=== PATIENT | female | born 1965 | race Caucasian/White ===

== ENCOUNTER 2019-03-20 13:25 | Observation (INO) ==
[2019-03-20 13:44] VITALS: BMI 25.6
--- NOTE | 2019-03-20 14:25 | DR.FBACK ---
HPI Time Seen Time Seen by Provider: 03/20/19 14:24 PCP Primary Care Physician: PINEDA DODD HPI Comment HPI Comment: PATIENT IS 53YR OLD FEMALE IN THE EMERGENCY ROOM WITH LOW BACK PAIN TIMES 3 WEEKS. PATIENT HAD LOWER BACK SURGERY ON 02/26/2019. WAS IMPROVING. PAIN STARTED AGAIN AND SAY HER DOCKTOR. STRIOD GIVEN BUT PATIENT STILL WORSE. NO TRAUMA. NO FEVER OR DYSURIA. TOOK PERCOCET AND STILL HAVE 10/10 PAIN. PAIN RADIATES DOWN LLE. Complaint Chief Complaint Doctor Comments: LOWER BACK PAIN Chief Complaint:: PT C/O BACK PAIN , PT HAD SURGERY IN [place] ON 02/26/19 AND PT WENT BACK ON 03/15/19 - PT WENT FOR FLU AND PLACED ON STEROIDS, AND TOLD SHE MAY HAVE A PULLED MUSCLE ,PT C/O > BACK PAIN THAT STARTED A WHILE AGO ( BACK PAIN THAT RADIATES TO HER LEFT SIDE ) Self Treatment fo Chief Complaint: OXYCODONE, NEURONTIN, MUSCLE RELAXER, TYLENOL #3 AND SHE STATES IT IS NOT HELPING HER PAIN ,BR Reviewed Nurses Notes Review: Yes Source History Provided: Patient Mode of Arrival Mode of Arrival: Ambulatory Timing Onset of Chief Complaint: 03/19/19 Duration Duration: Constant Duration: Days Location Back Pain Location: BACK Severity Severity: Severe Quality Quality: Aching and Sharp Context History of: Chronic Back Pain Modifying Factors Worsened By: Movement Associated Signs and Symptoms Back Pain Symptoms: None Numbness: Left and Foot Weakness: None Other History Other History: SURGERY LOWER BACK 02/26/2019. PMH PMH Past Medical History: Yes Past Medical History: Asthma and GERD Past Medical History Comment: BACK, LEAKY VALVE, IBS , DIVERTICULITIS Past Surgical History: Yes Surgical History: , Cholecystectomy and Hysterectomy Past Surgical History Comment: RIGHT KNEE, BACK Family History History of Family Medical Conditions: Yes Family Medical History: Cancer Social History Does patient currently use any type of tobacco product: No Have you used tobacco products in the last 12 months: No Type of Tobacco Use: None Does any household member use tobacco: No Alcohol Use: None Do you use any recreational Drugs:: No Lives With: Family Lives Where: Home infectious screening In the last 2 months have you had wt loss of >10#?: NO Have you had fever, night sweats or hemotysis?: No Have you traveled outside the country in the last 6 months?: No Isolation: Standard ROS Review of Systems Constitutional: No Symptoms Reported and See HPI; negative Fever, Weakness and Fatigue Eyes: No Symptoms Reported and See HPI ENTM: No Symptoms Reported and See HPI Respiratoy: No Symptoms Reported and See HPI; negative Short of Breath and Wheezing Cardiovascular: No Symptoms Reported and See HPI; negative Chest Pain and Palpitations Gastrointestinal/Abdominal: No Symptoms Reported and See HPI; negative Abdominal Pain, Constipation, Diarrhea, Nausea and Vomiting Genitourinary: No Symptoms Reported and See HPI; negative Dysuria, Frequency and Hematuria Neurological: No Symptoms Reported and See HPI; negative Headache, Weakness and Dizziness Musculoskeletal: See HPI, Back Pain, Muscle Pain and Back Integumentary: No Symptoms Reported and See HPI; negative Change in Color, Rash and Juandice Hematologic/Lymphatic: No Symptoms Reported and See HPI; negative Swollen Glands and Lymphadenopathy Endocrine: No Symptoms Reported, See HPI, Increased Thirst and Increased Urine Psychiatric: No Symptoms Reported and See HPI All Other Systems: Reviewed and Negative PE Vitals Vital Signs: Temp Pulse Resp BP Pulse Ox 03/20/19 16:08 17 03/20/19 15:09 17 03/20/19 15:08 17 03/20/19 13:38 97.5 F L 82 18 125/79 97 09/25/15 11:42 114/72 General Limitations: No Limitations General Appearance: Alert and In No Apparent Distress Head Head Exam: Normal Inspection, Atraumatic and Normocephalic Eyes Eye exam: Normal Appearance and PERRL; negative Scleral Icterus and Conjunctival Injection ENT ENT Exam: Normal Exam, Normal Oropharynx, Normal External Ear Exam and TM's Normal Bilaterally Chest Chest Inspection: Normal Inspection and Symmetric Chest Wall Rise; negative Tenderness Respiratory Respiratory Exam: Normal Lung Sounds Bilat; negative Accessory Muscle Use, Chest Wall Tenderness and Respiratory Distress Respiratory Exam: Bilateral: Clear to Auscultation Cardiovascular Cardiovascular Exam: Regular Rate, Normal Rhythm and Normal Heart Sounds; negative Systolic Murmur and Diastolic Murmur Abdominal Exam Abdominal Exam: Normal Inspection, Normal Bowel Sounds and Soft; negative Tenderness Genitourinary External Exam: Female: Deferred : Speculum Exam (Female): Deferred : Bimanual Exam (female): Deferred Extremities Extremities Exam: Normal Inspection and Normal Capillary Refill; negative Tenderness, Edema and Calf Tenderness Back Back Exam: Normal Inspection, Tenderness, Paraspinal Tenderness and Vertebral Tenderness Neurological Neurological Exam: Alert, Oriented X3 and CN II-XII Intact; negative Motor Sensory Deficit Psychiatric Psychiatric Exam: Normal Affect and Normal Mood Skin Skin Exam: Warm, Dry, Intact and Normal Color MDM Differential Diagnosis Differential Diagnosis: DJD, Fracture, Musculoskeletal Pain, Pyelonephritis, Strain and Urolithiasis COURSE Treatment Treatment: SEE ORDERS. Education/Counseling Education/Counseling: Patient and Family Educated On: Diagnosis and Needs for Follow Up ROR Labs Reviewed Laboratory Results Reviewed?: Yes Result Diagrams: 03/21/19 04:12 03/21/19 04:12 Laboratory: Specimen Type Clean catch urine 03/20/19 14:51 Urine Color Yellow (YELLOW) 03/20/19 14:51 Urine Appearance Clear (CLEAR) 03/20/19 14:51 Urine pH 6.0 (5.0 - 8.0) 03/20/19 14:51 Ur Specific [place] 1.025 (1.000-1.030) 03/20/19 14:51 Urine Protein 2+ (NEGATIVE) 03/20/19 14:51 Urine Glucose (UA) Negative (NEGATIVE) 03/20/19 14:51 Urine Ketones Negative (NEGATIVE) 03/20/19 14:51 Urine Occult Blood Negative (NEGATIVE) 03/20/19 14:51 Urine Nitrite Negative (NEGATIVE) 03/20/19 14:51 Urine Bilirubin Negative (NEGATIVE) 03/20/19 14:51 Urine Urobilinogen Normal (NORMAL) 03/20/19 14:51 Ur Leukocyte Esterase 1+ (NEGATIVE) 03/20/19 14:51 Urine RBC 0-2 /HPF (0-3) 03/20/19 14:51 Urine WBC 3-5 /HPF (0-5) 03/20/19 14:51 Ur Squamous Epith Cells Few /HPF (NEGATIVE) 03/20/19 14:51 Urine Bacteria Trace /HPF (NEGATIVE) 03/20/19 14:51 Urine Mucus Few /HPF (NEGATIVE) 03/20/19 14:51 Ur Culture Indicated? No/not indicated 03/20/19 14:51 XRAY XRAY Interpreted by: Radiologist XRAY Findings: REPORT NOTED AND DISCUSSED WITH PATIENT. Opioid Opioid Risk Tool Age (Ty box if 16-45): No History of Preadolescent Sexual Abuse: No Total: 0 Total Score Risk Category: Low Risk Copyright: Eldridge LR predicting aberrant behaviors Diagnosis Discharge Problem: Low back pain radiating down leg Sciatica Qualifiers: Laterality: bilateral Qualified Code(s): M54.31 - Sciatica, right side Instructions Instructions: Back Pain, Adult Sciatica, [id number] Forms: Excuse From Work Patient Portal
[2019-03-20] MEDS ORDERED: TORADOL 60 MG VIAL IM ONE (14:47)
[2019-03-20] MEDS ORDERED: NORFLEX INJ IM ONE (14:47)
[2019-03-20] MEDS ORDERED: DECADRON INJ IM ONE (14:47)
[2019-03-20] MEDS ORDERED: TORADOL 60 MG VIAL ONE (14:49)
[2019-03-20] MEDS ORDERED: NORFLEX INJ ONE (14:49)
[2019-03-20] MEDS ORDERED: DECADRON INJ ONE (14:49)
[2019-03-20 15:11] LABS: BILIRUBIN,URINE NEGATIVE (NEGATIVE); BLOOD/HEMOGLOBIN,URINE NEGATIVE (NEGATIVE); GLUCOSE, URINE NEGATIVE (NEGATIVE); KETONES,URINE NEGATIVE (NEGATIVE); LEUKOCYTE ESTERASE ,URINE 1+ (NEGATIVE); NITRITES,URINE NEGATIVE (NEGATIVE); PROTEIN,URINE 2+ (NEGATIVE); UROBILINOGEN,URINE NORMAL (NORMAL)
[2019-03-20 15:20] LABS: APPEARANCE,URINE CLEAR (CLEAR); BACTERIA,URINE TRACE /HPF (NEGATIVE); COLOR,URINE YELLOW (YELLOW); MUCUS,URINE FEW /HPF (NEGATIVE); RBC,URINE 0-2 /HPF (0-3); SQUAMOUS EPITHELIAL CELL,UR FEW /HPF (NEGATIVE)
--- NOTE | 2019-03-20 15:26 | CT ---
CT lumbar spine without contrast Indication: Back pain with previous laminectomy Comparison: None available Technique: Multiple axial images of the lumbar spine were obtained from the upper abdomen to the pelvis without administration of IV contrast. Sagittal and coronal reformats were performed and reviewed. Dose reduction techniques including automated exposure control (AEC) and adjustment of mA and kV were utilized. Findings: There is no fracture or spondylolisthesis of the lumbar spine. There is mild multilevel discogenic degenerative change and facet arthropathy within the lumbar spine. Previous partial laminectomy noted on the right at L3. Given limitations of a CT examination no definite moderate or high-grade spinal canal or neural foraminal stenosis identified. Degenerative change are noted within bilateral SI joints. Scattered distal colonic diverticulosis is noted. Prior cholecystectomy. IMPRESSION: 1. Mild discogenic degenerative change and facet arthropathy throughout the lumbar spine acute fracture, spondylolisthesis or evidence of moderate or high-grade spinal canal or neural foraminal stenosis. Based on clinical symptoms correlation with lumbar spine MRI can be performed as clinically warranted. 2. Previous right-sided partial laminectomy at L3. Reported By:
[2019-03-20] MEDS ORDERED: ZOFRAN INJ 4 MG VIAL ONE (16:40)
[2019-03-20] MEDS ORDERED: MORPHINE SULFATE INJ 4 MG ONE (16:43)
[2019-03-20] MEDS ORDERED: MORPHINE SULFATE INJ 4 MG IVP ONE (16:49)
[2019-03-20] MEDS ORDERED: ZOFRAN INJ 4 MG VIAL IVP ONE (16:49)
[2019-03-20] MEDS ORDERED: ZOFRAN INJ 4 MG VIAL IVP PRN (17:17)
[2019-03-20] MEDS: NS 1000 ML 1,000 ML IV SCH (18:12)
[2019-03-20] MEDS: MORPHINE SULFATE INJ 4 MG IVP PRN (19:21)
[2019-03-20] MEDS ORDERED: NEURONTIN CAP 300 MG PO SCH (21:00)
[2019-03-20] MEDS: ZANAFLEX PO SCH (21:12)
[2019-03-20] MEDS: ZANTAC PO SCH (21:12)
[2019-03-20] MEDS: TORADOL 30 MG VIAL IVP PRN (22:42)
[2019-03-21] MEDS: MORPHINE SULFATE INJ 4 MG IVP PRN (02:45)
[2019-03-21 04:39] LABS: BASOPHILS # (AUTO) 0.1 X10^3/uL (0.0-0.1); BASOPHILS % (AUTO) 0.7 % (0.2-1.0); HEMATOCRIT 40.5 % (36.0-47.0); HEMOGLOBIN 13.5 g/dL (12.0-16.0); LYMPHOCYTES # (AUTO) 1.9 X10^3/uL (1.3-2.9); LYMPHOCYTES % (AUTO) 21.6 % (21.0-51.0); MEAN CORPUSCULAR HEMOGLOBIN 29.2 pg (27.0-34.0); MEAN CORPUSCULAR HGB CONC 33.4 g/dL (33.0-35.0); MEAN CORPUSCULAR VOLUME 87.4 fL (80.0-100.0); MEAN PLATELET VOLUME 8.8 fL (7.4-11.0); MONOCYTES # (AUTO) 0.5 x10^3/uL (0.3-0.8); MONOCYTES % (AUTO) 5.7 % (0.0-13.0); NEUTROPHILS # (AUTO) 6.3 x10^3/uL (2.2-4.8); PLATELET COUNT 320 X10^3/uL (150.0-450.0); RED BLOOD COUNT 4.63 X10^6/uL (3.5-5.4); RED CELL DISTRIBUTION WIDTH 13.5 % (11.6-16.5); WHITE BLOOD COUNT 8.7 X10^3/uL (3.6-10.0)
[2019-03-21 04:57] LABS: ALANINE AMINOTRANSFERASE 44 Units/L (12-78); ALBUMIN 3.3 g/dL (3.4-5.0); ALKALINE PHOSPHATASE 144 Units/L (46-116); ASPARTATE AMINO TRANSFERASE 32 Units/L (15-37); BLOOD UREA NITROGEN 20 mg/dL (7-18); CARBON DIOXIDE 26.2 mmol/L (21-32); CHLORIDE 103 mmol/L (98-107); COR CA(FOR HYPOALB) 9.6 mg/dL (8.5-10.1); SODIUM 137 mmol/L (136-145); TOTAL PROTEIN 7.2 g/dL (6.4-8.2); eGFR NON BLACK RACES > 60 (>60)
[2019-03-21] MEDS: NS 1000 ML 1,000 ML IV SCH ×2 (05:41→20:18)
[2019-03-21] MEDS: TORADOL 30 MG VIAL IVP PRN (07:24)
[2019-03-21] MEDS: LINZESS PO SCH (08:45)
[2019-03-21] MEDS: CELEXA PO SCH (08:45)
[2019-03-21] MEDS: PREVACID PO SCH (08:45)
--- NOTE | 2019-03-21 10:28 | DR.H&P ---
H&P - History & Physical for Day of: H&P Date: 03/20/19 - Chief Complaint Chief Complaint: SEVERE LOWER BACK PAIN - History of Present Illness History of Present Illness: IS A 53 YEAR OLD PATIENT OF DR.LINA GUILLEN. SHE PRESENTED TO THE ER WITH COMPLAINTS OF SEVERE LOWER BACK PAIN. SHE REPORTS A LAMINECTOMY ON 02/26/19. SHE HAD A FOLLOW UP ON 03/15/19. SHE WAS PLACED ON STEROIDS AT THAT TIME DUE TO PERSISTENT BACK PAIN AND WAS TOLD THAT SHE MAY HAVE A PULLED MUSCLE. SHE REPORTS THAT PAIN RADIATES TO THE LEFT FLANK AREA AND DOWN HER LEFT LEG. SHE TAKES HYDROCODONE, NEURONTIN, ZANAFLEX, AND TYLENOL #3, BUT DENIES IMPROVEMENT IN SYMPTOMS DESPITE COMPLIANCE WITH MEDS. ON ARRIVAL, VITALS WERE 97.5-82-18-97%-125/79. LABS WERE OBTAINED. A LUMBAR SPINE CT WAS OBTAINED AND REVEALED: Mild discogenic degenerative change and facet arthropathy throughout the lumbar spine acute fracture, spondylolisthesis or evidence of moderate or high-grade spinal canal or neural foraminal stenosis. Based on clinical symptoms correlation with lumbar spine MRI can be performed as clinically warranted. Previous right-sided partial laminectomy at L3. SHE WAS GIVEN MORPHINE 4MG IV X 1, TORADOL 60MG IM X 1, DECADRON 4MG IM X 1, AND NORFLEX 60MG IM X 1 IN THE ER. SHE DENIED SIGNIFICANT IMPROVEMENT IN PAIN. SHE WAS ADMITTED FOR FURTHER EVALUATION AND TREATMENT OF INTRACTABLE LOWER BACK PAIN. WE WILL START MORPHINE 4MG IV Q6H PRN, TORADOL 30MG IV Q6H PRN, AND NEURONTIN 300MG PO HS. WE PLAN TO OBTAIN A LUMBAR SPINE MRI IN THE MORNING. OTHERWISE, WE WILL FOLLOW UP WITH AM LABS AND CONTINUE TO MONITOR. - Past Medical History Past Medical History: Asthma, GERD - Past Surgical History Surgical History: , Cholecystectomy, Ortho Surgery, Other - Family History Family Medical History: Cancer, Hypertension - Social History Does patient currently use any type of tobacco product: No Have you used tobacco products in the last 12 months: No Type of Tobacco Use: None Does any household member use tobacco: No Alcohol Use: None Drug Use: None - Medications Home Medications: No Known Drug Allergies Allergy (Verified 03/20/19 13:45) CONTINUE taking the following medications acetaminophen-codeine [Tylenol-Codeine #3] 1 tab PO BID PRN 03/20/19 [History] citalopram 20 mg PO DAILY 03/20/19 [History] dexlansoprazole [Dexilant] 60 mg PO DAILY 03/20/19 [History] gabapentin 200 mg PO BID 03/20/19 [History] gabapentin 300 mg PO HS 03/20/19 [History] hydrocodone-acetaminophen 1 tab PO Q4H PRN 03/20/19 [History] linaclotide [Linzess] 290 mcg PO DAILY 03/20/19 [History] ranitidine HCl [Zantac 75] 300 mg PO HS 03/20/19 [History] tizanidine 4 mg PO HS 03/20/19 [History] - Review of Systems Constitutional: No Symptoms Reported Eyes: No Symptoms Reported ENT: No Symptoms Reported Respiratory: No Symptoms Reported Cardiovascular: No Symptoms Reported Gastrointestinal: No Symptoms Reported Genitourinary: No Symptoms Reported Musculoskeletal: Back Pain (LOWER BACK PAIN WITH RADIATION TO THE LEFT LEG), Leg Pain Skin: No Symptoms Reported Neurological: No Symptoms Reported - Physical Exam Vital Signs: Temperature 97.6 F Pulse Rate [Left Brachial] 64 Pulse Rate 82 Respiratory Rate 20 Blood Pressure [Right Arm] 153/82 Blood Pressure [Left Arm] 150/82 Blood Pressure 125/79 O2 Sat by Pulse Oximetry 97 Oriented: Normal Eyes: Normal Ear: Normal Nose: Normal Throat: Normal Respiratory: Clear Throughout Cardiovascular: Normal. negative: S3, S4, Murmur : Normal Auscultation: Bowel Sounds: Normal Palpation: Normal Tenderness: Normal Skin: Normal Musculoskeletal: Back:Lumbar, Tender Psychiatric: Normal Mood Description: Calm Affect: Normal Speech Pattern: Clear - Assessment/Plan (1) Low back pain radiating down leg Status: Acute Plan: OBTAIN LUMBAR MRI IN AM, MORPHINE 4MG IV Q6H PRN, TORADOL 30MG IV Q6H PRN, AND NEURONTIN 300MG PO HS - Allergies Allergies/Adverse Reactions: Allergies Allergy/AdvReac Type Severity Reaction Status Date / Time No Known Drug Allergies Allergy Verified 03/20/19 13:45
[2019-03-21] MEDS: DILAUDID INJ IVP PRN ×2 (10:43→21:21)
--- NOTE | 2019-03-21 10:59 | PCM.PROG ---
Progress Note - Progress Note for Day of Date of Exam: 03/21/19 - Subjective Subjective: WAS ADMITTED FOR INTRACTABLE LOWER BACK PAIN WITH RADIATION TO THE LEFT LEG. TODAY, SHE IS ALERT AND ORIENTED, SITTING UP IN BED ON MORNING ROUNDS. SHE CONTINUES WITH MODERATE PAIN TO THE LOWER BACK. SHE REPORTS ONLY SLIGHT IMPROVEMENT WITH CURRENT MEDICATIONS. HER VITALS THIS MOR SHERICE ARE: 97.6-64-20-97%-153/82. LABS WERE OBTAINED. ABNORMAL LAB VALUES INCLUDE THE FOLLOWING: BUN 20, GLUCOSE 110, ALK PHOS 144, ALBUMIN 3.3. SHE IS CURRENTLY RECEIVING MORPHINE 4MG IV Q6H PRN, TORADOL 30MG IV Q6H PRN, AND NEURONTIN 300MG PO HS FOR PAIN. WE WILL CHANGE THE TORADOL TO SCHEDULED, INCREASE THE NEURONTIN TO 600MG PO TID, DISCONTINUE THE MORPHINE, AND START DILAUDID 2MG IV Q4H PRN PA IN. WE WILL OBTAIN A LUMBAR SPINE MRI WITHOUT CONTRAST. OTHERWISE, WE PLAN TO FOLLOW UP WITH AM LABS AND CONTINUE TO MONITOR. - Past Medical Family Social History Past Med/Fam/Surg Hx: No changes since H&P Allergies: Allergies No Known Drug Allergies Allergy (Verified 03/20/19 13:45) - Review of Systems ROS: No change since H&P - Vital Signs and I&O's Vital Signs: Temperature 97.6 F Pulse Rate [Left Brachial] 64 Pulse Rate 82 Respiratory Rate 20 Blood Pressure [Right Arm] 153/82 Blood Pressure [Left Arm] 150/82 Blood Pressure 125/79 O2 Sat by Pulse Oximetry 97 Intake and Output: Intake & Output 03/18/19 03/19/19 03/20/19 03/21/19 11:59 11:59 11:59 11:59 Intake Total 460 / 460 Balance 460 / 460 - Physical Exam Oriented: Normal Eyes: Normal Ear: Normal Nose: Normal Throat: Normal Respiratory: Normal Cardiovascular: Normal. negative: S3, S4, Murmur : Normal Auscultation: Bowel Sounds: Normal Tenderness: Normal Skin: Normal Musculoskeletal: Back:Lumbar, Tender Psychiatric: Normal Mood Description: Calm Affect: Normal Speech Pattern: Clear - Laboratory and Diagnostics Result Diagrams: 03/21/19 04:12 03/21/19 04:12 Labs: Laboratory WBC 8.7 X10^3/uL (3.6-10.0) 03/21/19 04:12 RBC 4.63 X10^6/uL (3.5-5.4) 03/21/19 04:12 Hgb 13.5 g/dL (12.0-16.0) 03/21/19 04:12 Hct 40.5 % (36.0-47.0) 03/21/19 04:12 MCV 87.4 fL (80.0-100.0) 03/21/19 04:12 MCH 29.2 pg (27.0-34.0) 03/21/19 04:12 MCHC 33.4 g/dL (33.0-35.0) 03/21/19 04:12 RDW 13.5 % (11.6-16.5) 03/21/19 04:12 Plt Count 320 X10^3/uL (150.0-450.0) 03/21/19 04:12 MPV 8.8 fL (7.4-11.0) 03/21/19 04:12 Neut % (Auto) 72.0 % (42.0-75.0) 03/21/19 04:12 Lymph % (Auto) 21.6 % (21.0-51.0) 03/21/19 04:12 [place] % (Auto) 5.7 % (0.0-13.0) 03/21/19 04:12 Eos % (Auto) 0.0 % (0.9-2.9) L 03/21/19 04:12 Baso % (Auto) 0.7 % (0.2-1.0) 03/21/19 04:12 Neut # (Auto) 6.3 x10^3/uL (2.2-4.8) H 03/21/19 04:12 Lymph # (Auto) 1.9 X10^3/uL (1.3-2.9) 03/21/19 04:12 [place] # (Auto) 0.5 x10^3/uL (0.3-0.8) 03/21/19 04:12 Eos # (Auto) 0.0 x10^3/uL (0.0-0.2) 03/21/19 04:12 Baso # (Auto) 0.1 X10^3/uL (0.0-0.1) 03/21/19 04:12 Absolute Nucleated RBC 0.0 /100WBC 03/21/19 04:12 ESR 12 MM/HOUR (0-20) 03/21/19 04:12 Sodium 137 mmol/L (136-145) 03/21/19 04:12 Corrected Sodium TNP 03/21/19 04:12 Potassium 4.6 mmol/L (3.5-5.1) 03/21/19 04:12 Chloride 103 mmol/L (98-107) 03/21/19 04:12 Carbon Dioxide 26.2 mmol/L (21-32) 03/21/19 04:12 BUN 20 mg/dL (7-18) H 03/21/19 04:12 Creatinine 0.90 mg/dL (0.55-1.02) 03/21/19 04:12 Est GFR (MDRD) Af Amer > 60 (>60) 03/21/19 04:12 Est GFR (MDRD) Non-Af > 60 (>60) 03/21/19 04:12 Glucose 110 mg/dL (65-99) H 03/21/19 04:12 Calcium 9.0 mg/dL (8.5-10.1) 03/21/19 04:12 Corrected Calcium 9.6 mg/dL (8.5-10.1) 03/21/19 04:12 Total Bilirubin 0.40 mg/dL (0.2-1.0) 03/21/19 04:12 AST 32 Units/L (15-37) 03/21/19 04:12 ALT 44 Units/L (12-78) 03/21/19 04:12 Alkaline Phosphatase 144 Units/L (46-116) H 03/21/19 04:12 C-Reactive Protein 0.60 mg/L (0-3.0) 03/21/19 04:12 Total Protein 7.2 g/dL (6.4-8.2) 03/21/19 04:12 Albumin 3.3 g/dL (3.4-5.0) L 03/21/19 04:12 Globulin 3.9 g/dL (2.5-4.5) 03/21/19 04:12 Albumin/Globulin Ratio 0.8 Ratio (1.1-2.1) L 03/21/19 04:12 Specimen Type Clean catch urine 03/20/19 14:51 Urine Color Yellow (YELLOW) 03/20/19 14:51 Urine Appearance Clear (CLEAR) 03/20/19 14:51 Urine pH 6.0 (5.0 - 8.0) 03/20/19 14:51 Ur Specific [place] 1.025 (1.000-1.030) 03/20/19 14:51 Urine Protein 2+ (NEGATIVE) 03/20/19 14:51 Urine Glucose (UA) Negative (NEGATIVE) 03/20/19 14:51 Urine Ketones Negative (NEGATIVE) 03/20/19 14:51 Urine Occult Blood Negative (NEGATIVE) 03/20/19 14:51 Urine Nitrite Negative (NEGATIVE) 03/20/19 14:51 Urine Bilirubin Negative (NEGATIVE) 03/20/19 14:51 Urine Urobilinogen Normal (NORMAL) 03/20/19 14:51 Ur Leukocyte Esterase 1+ (NEGATIVE) 03/20/19 14:51 Urine RBC 0-2 /HPF (0-3) 03/20/19 14:51 Urine WBC 3-5 /HPF (0-5) 03/20/19 14:51 Ur Squamous Epith Cells Few /HPF (NEGATIVE) 03/20/19 14:51 Urine Bacteria Trace /HPF (NEGATIVE) 03/20/19 14:51 Urine Mucus Few /HPF (NEGATIVE) 03/20/19 14:51 Ur Culture Indicated? No/not indicated 03/20/19 14:51 - Plan (1) Low back pain radiating down leg Status: Acute Plan: OBTAIN LUMBAR MRI TODAY, DILAUDID 2MG IV Q4H PRN, TORADOL 30MG IV Q6H MENG, AND NEURONTIN 600MG PO TID, ZANAFLEX, CONTINUE TO MONITOR
[2019-03-21] MEDS: NEURONTIN TAB 600 MG PO SCH ×3 (11:59→21:54)
[2019-03-21] MEDS: LOVENOX INJ 40 MG SYR SC SCH (12:01)
[2019-03-21] MEDS: TORADOL 30 MG VIAL IVP SCH ×2 (14:31→20:19)
[2019-03-21] MEDS ORDERED: TYLENOL 325 MG TAB PO PRN (17:04)
[2019-03-21] MEDS ORDERED: TYLENOL 325 MG TAB PO ONE (17:07)
[2019-03-21] MEDS: ZANTAC PO SCH (20:19)
[2019-03-21] MEDS: ZANAFLEX PO SCH (20:19)
[2019-03-22] MEDS: TORADOL 30 MG VIAL IVP SCH ×4 (04:45→20:29)
[2019-03-22] MEDS: NEURONTIN TAB 600 MG PO SCH ×3 (05:10→21:02)
[2019-03-22] MEDS: NS 1000 ML 1,000 ML IV SCH ×2 (05:11→09:37)
[2019-03-22 05:45] LABS: BASOPHILS % (AUTO) 0.4 % (0.2-1.0); EOSINOPHILS # (AUTO) 0.1 x10^3/uL (0.0-0.2); EOSINOPHILS % (AUTO) 0.4 % (0.9-2.9); HEMATOCRIT 39.4 % (36.0-47.0); HEMOGLOBIN 13.1 g/dL (12.0-16.0); LYMPHOCYTES # (AUTO) 3.4 X10^3/uL (1.3-2.9); MEAN CORPUSCULAR HEMOGLOBIN 29.2 pg (27.0-34.0); MEAN CORPUSCULAR HGB CONC 33.2 g/dL (33.0-35.0); MEAN CORPUSCULAR VOLUME 88.2 fL (80.0-100.0); MEAN PLATELET VOLUME 8.7 fL (7.4-11.0); MONOCYTES # (AUTO) 1.1 x10^3/uL (0.3-0.8); MONOCYTES % (AUTO) 8.4 % (0.0-13.0); NEUTROPHILS # (AUTO) 8.1 x10^3/uL (2.2-4.8); NEUTROPHILS % (AUTO) 63.8 % (42.0-75.0); PLATELET COUNT 312 X10^3/uL (150.0-450.0); RED BLOOD COUNT 4.46 X10^6/uL (3.5-5.4); RED CELL DISTRIBUTION WIDTH 13.5 % (11.6-16.5); WHITE BLOOD COUNT 12.8 X10^3/uL (3.6-10.0)
[2019-03-22 05:54] LABS: ALANINE AMINOTRANSFERASE 53 Units/L (12-78); ALBUMIN 3.1 g/dL (3.4-5.0); ALKALINE PHOSPHATASE 140 Units/L (46-116); ASPARTATE AMINO TRANSFERASE 38 Units/L (15-37); BLOOD UREA NITROGEN 24 mg/dL (7-18); CALCIUM 8.2 mg/dL (8.5-10.1); CARBON DIOXIDE 27.6 mmol/L (21-32); CHLORIDE 105 mmol/L (98-107); COR CA(FOR HYPOALB) 8.9 mg/dL (8.5-10.1); CREATININE 0.99 mg/dL (0.55-1.02); SODIUM 139 mmol/L (136-145); TOTAL PROTEIN 6.7 g/dL (6.4-8.2); eGFR NON BLACK RACES > 60 (>60)
[2019-03-22] MEDS: LOVENOX INJ 40 MG SYR SC SCH (08:32)
[2019-03-22] MEDS: LINZESS PO SCH (08:32)
[2019-03-22] MEDS: PREVACID PO SCH (08:33)
[2019-03-22] MEDS: CELEXA PO SCH (08:38)
[2019-03-22] MEDS ORDERED: COLACE CAP 100 MG PO PRN (09:00)
[2019-03-22] MEDS ORDERED: MILK OF MAGNESIA PO PRN (09:00)
[2019-03-22] MEDS: ZANTAC PO SCH (20:28)
[2019-03-22] MEDS: ZANAFLEX PO SCH (20:29)
[2019-03-23] MEDS: DILAUDID INJ IVP PRN ×2 (01:08→09:08)
[2019-03-23] MEDS ORDERED: BENADRYL CAP/TAB 25 MG PO ONE ×2 (02:49→02:51)
[2019-03-23 05:20] LABS: BASOPHILS # (AUTO) 0.1 X10^3/uL (0.0-0.1); BASOPHILS % (AUTO) 0.8 % (0.2-1.0); EOSINOPHILS # (AUTO) 0.2 x10^3/uL (0.0-0.2); EOSINOPHILS % (AUTO) 2.8 % (0.9-2.9); HEMATOCRIT 37.5 % (36.0-47.0); HEMOGLOBIN 12.4 g/dL (12.0-16.0); LYMPHOCYTES # (AUTO) 2.8 X10^3/uL (1.3-2.9); LYMPHOCYTES % (AUTO) 35.5 % (21.0-51.0); MEAN CORPUSCULAR HEMOGLOBIN 28.7 pg (27.0-34.0); MEAN CORPUSCULAR HGB CONC 33.1 g/dL (33.0-35.0); MEAN CORPUSCULAR VOLUME 86.9 fL (80.0-100.0); MEAN PLATELET VOLUME 8.6 fL (7.4-11.0); MONOCYTES # (AUTO) 0.6 x10^3/uL (0.3-0.8); MONOCYTES % (AUTO) 7.7 % (0.0-13.0); NEUTROPHILS # (AUTO) 4.2 x10^3/uL (2.2-4.8); NEUTROPHILS % (AUTO) 53.2 % (42.0-75.0); PLATELET COUNT 285 X10^3/uL (150.0-450.0); RED BLOOD COUNT 4.31 X10^6/uL (3.5-5.4); RED CELL DISTRIBUTION WIDTH 13.9 % (11.6-16.5); WHITE BLOOD COUNT 7.9 X10^3/uL (3.6-10.0)
[2019-03-23 05:26] LABS: ALANINE AMINOTRANSFERASE 35 Units/L (12-78); ALBUMIN 2.8 g/dL (3.4-5.0); ALKALINE PHOSPHATASE 139 Units/L (46-116); ASPARTATE AMINO TRANSFERASE 20 Units/L (15-37); BLOOD UREA NITROGEN 12 mg/dL (7-18); CALCIUM 8.1 mg/dL (8.5-10.1); CARBON DIOXIDE 28.3 mmol/L (21-32); CHLORIDE 108 mmol/L (98-107); COR CA(FOR HYPOALB) 9.1 mg/dL (8.5-10.1); CREATININE 0.82 mg/dL (0.55-1.02); SODIUM 141 mmol/L (136-145); TOTAL PROTEIN 6.1 g/dL (6.4-8.2); eGFR NON BLACK RACES > 60 (>60)
[2019-03-23] MEDS: TORADOL 30 MG VIAL IVP SCH ×2 (05:30→10:25)
[2019-03-23] MEDS: NEURONTIN TAB 600 MG PO SCH (05:43)
[2019-03-23] MEDS: NS 1000 ML 1,000 ML IV SCH ×3 (06:35→10:26)
[2019-03-23 08:01] VITALS: BP 104/58
[2019-03-23] MEDS ORDERED: K-DUR TAB 20 MEQ PO PRN (08:07)
[2019-03-23] MEDS ORDERED: K-RIDER 10 MEQ/NS 100 ML 10 MEQ/100 ML BAG IV PRN (08:07)
[2019-03-23] MEDS ORDERED: MICRO K EXTEN CAP 10 MEQ PO PRN (08:07)
[2019-03-23] MEDS ORDERED: KLOR-CON PO PRN (08:07)
[2019-03-23] MEDS ORDERED: POTASSIUM CHL 60 MEQ/NS 0.45% 500 ML IV PRN (08:07)
[2019-03-23] MEDS ORDERED: POTASSIUM CHLORIDE LIQ 20 MEQ UDC PO PRN (08:07)
[2019-03-23] MEDS ORDERED: POTASSIUM CHL 40 MEQ/NS 0.45% 500 ML IV PRN (08:07)
[2019-03-23] MEDS: MAGNESIUM SULFATE 1 GRAM/100 mL PREMIX 1 GM/100 ML BAG IV PRN ×2 (09:10→12:00)
[2019-03-23] MEDS: LOVENOX INJ 40 MG SYR SC SCH (09:10)
[2019-03-23] MEDS: LINZESS PO SCH (09:11)
[2019-03-23] MEDS: PREVACID PO SCH (09:11)
[2019-03-23] MEDS: CELEXA PO SCH (09:11)
== END 2019-03-23 12:50 | disposition home or self-care (01) ==
LOC: ER 13:27 → MED/SURG 13:27
PROVIDERS: ADMIT Internal Medicine; ATTEND Internal Medicine
CPT/HCPCS: 36415; 72131; 80053; 81001; 83735; 85025; 85652; 86140; 87086; 94760; 96360; 96361; 96365; 96372; 96374; 96375; 97110; 97112; 97162; 97166; 99284; A4222; G0378; J1100; J1170; J1650; J1885; J2270; J2360; J2405; J3475; J3490; J7030